=== PATIENT | male | born 1995 | race Caucasian/White ===

== ENCOUNTER 2021-07-30 20:41 | Emergency (ER) | payer SELFPAY ==
[~2021-07-30] VITALS: Ht 175.2 cm; Wt 81.6 kg
--- OUTSIDE RECORDS SUMMARY | 2021-07-30 20:46 | XMS REPORT | Clinical Summary ---
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 If you d o not see the information that you expected, contact Release of Information in [facility] [employer] department at [phone] for further assistan ce in locating additional records.[facility] Allergies No Known Active Allergies Medications End Date Status Medication Sig Dispensed Refills Start Date Active oxyCODONE/acetaminophen Take 1-2 Tabs 0 (PERCOCET; ENDOCET; by mouth ROXICET) 5/325 mg tablet every 6 hours as needed for Pain Active Problems Problem Noted Date Closed fracture of condylar process of mandible with routine healing 05/18/2016 Family History Medical History Relation Name Comments Diabetes Maternal Grandfather Hypertension Maternal Grandmother Relation Name Status Comments Brother Alive Father Alive Maternal Grandfather Maternal Grandmother Mother Alive Social History Date Tobacco Use Types Packs/Day Years Used Current Every Day Smoker Cigarettes 1 Smokeless Tobacco: Never Used Comments Alcohol Use Standard Drinks/Week Yes 0 (1 standard drink = 0.6 o z pure alcohol) Sex Assigned at Date Recorded Not on file Last Filed Vital Signs Reading Time Taken Comments Vital Sign 125/77 05/18/2016 10:42 AM CDT Blood Pressure 48 05/18/2016 10:42 AM CDT Pulse - - Temperature - - Respiratory Rate - - Oxygen Saturation - - Inhaled Oxygen Concentration 72.6 kg (160 lb) 05/18/2016 10:42 AM CDT Weight 175.3 cm (5' 9") 05/18/2016 10:42 AM CDT Height 23.63 05/18/2016 10:42 AM CDT Body Mass Index Plan of Treatment Health Maintenance Due Date Last Done Comments HIV SCREENING 2008 DTAP/TDAP VACCINES (1 - 2011 Tdap) HEPATITIS C SCREENING 2011 PHYSICAL (COMPREHENSIVE) 2011 EXAM INFLUENZA VACCINE 08/28/2021 HPV VACCINES Aged Out No longer eligible based on patient's age to complete this topic Results Not on filefrom Last 3 Months
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
[2021-07-30] MEDS ORDERED: fentaNYL INJ 100 MCG/2 ML AMP IVP STA (20:56)
--- NOTE | 2021-07-30 21:15 | Diagnostic Imaging Report ---
EXAMINATION: Right ankle radiographs, 3 views. COMPARISON: None. HISTORY: 25-year-old male, right ankle pain after injury. FINDINGS: There is a mildly displaced distal fibular diaphyseal fracture above the level of the tibial plafond. There is mild medial angulation of the distal fracture fragment. There is a displaced fracture of the posterior malleolus and probable fracture involvement of the medial malleolus. There is soft tissue swelling anteriorly. There is no large tibiotalar joint effusion. IMPRESSION: 1. Mildly displaced distal fibular diaphyseal fracture above the level of the tibial plafond. 2. Displaced fractures of the posterior malleolus and medial malleolus. Dictated by: Dictated on workstation # [id number]
[2021-07-30] MEDS ORDERED: ACHD5005 PO (21:27)
[2021-07-30] MEDS ORDERED: HYDROcodone/APAP 5 MG/325 MG (LORTAB) TAB PO ONE (21:30)
[2021-07-30 21:54] VITALS: BP 142/85
== END 2021-07-30 21:54 | disposition home or self-care (01) ==
LOC: EDUNIT# 20:41 → ER FS 20:43
DX: S82.841A Displaced bimalleolar fracture of right lower leg, initial encounter for closed fracture (principal); X50.1XXA Overexertion from prolonged static or awkward postures, initial encounter; Y93.55 Activity, bike riding
CPT/HCPCS: 29515; 73610

== ENCOUNTER → 2021-08-06 | Outpatient (CLI) | payer SELFPAY ==
[~2021-08-06] MED LIST: ACHD5005 PO
--- NOTE | 2021-08-06 17:11 | Diagnostic Imaging Report ---
EXAMINATION: Right ankle radiographs, 3 views. COMPARISON: July 30, 2021. HISTORY: 25-year-old male, follow-up trimalleolar fracture. FINDINGS: There is an obliquely oriented displaced fibular diaphyseal fracture with the primary distal fracture fragment being displaced posteriorly by 5 mm. There is a displaced fracture of the posterior malleolus. Overall fracture alignment is unchanged since July 30, 2021. There is also fracture involvement of the medial malleolus. There are persistent visible fracture lines without pronounced interval bony callus bridging. There does appear to be widening of the medial clear spaces of the ankle mortise. IMPRESSION: 1. Redemonstrated fractures of the distal fibula and posterior malleolus, and medial malleolus with unchanged overall alignment. No pronounced interval healing changes currently. Dictated by: Dictated on workstation # [id number]
== END ==
LOC: RAD FS 15:30
PROVIDERS: ATTEND Nurse Practitioner
DX: S82.851A Displaced trimalleolar fracture of right lower leg, initial encounter for closed fracture (principal); X58.XXXA Exposure to other specified factors, initial encounter
CPT/HCPCS: 73610